=== PATIENT | female | born 1960 | race Hispanic/Latino ===

== ENCOUNTER 2024-11-05 19:32 | Emergency (ER) | payer BC ==
[~2024-11-05] VITALS: Ht 152.4 cm; Wt 89.4 kg
--- NOTE | 2024-11-05 19:45 | ERN ---
ED Note History of Present Illness Stated Complaint: C/O NUMBNESS TO BODY X 3 DAYS Chief Complaint: Numbness Time Seen by MD: 19:34 Time Seen by Midlevel: 19:36 Dictation: Ms. Shepherd is a 64 year old female with history of hypertension, CVA in 2020, and obesity who presented to the Emergency Department this evening evaluation of generalized weakness. She states that on Monday she developed a congested cough, fatigue, and general weakness. She states sympoms have persisted and now she states her whole body feels numb and she has felt dizzy. Preserved today, she experienced a transient episode of left arm/hand weakness.. She states that she has a tingling sensation in both hands/feet which she states makes it hard to get around. She denies fever, chills, shortness of breath, chest pain, palpitations, edema, abdominal pain, nausea, vomiting, hematemesis, c onstipation, diarrhea, melena, hematochezia, dysuria, headache, facial droop, dysarthria, dysphagia, vision changes, ataxi, dizziness, or focal paresthesia. Allergies: Coded Allergies: No Known Allergies (Unverified Allergy, Unknown, 11/05/24) Emergency Care [employer]: None Past Medical History Past Medical History: CVA, Hypertension Surgical History: None PSYCH History: no pertinent psych hx Social History: Negative, Lives with family History: Not Applicable RN Note Reviewed/Agreed w/PFSH: Yes Review of System Dictation REVIEW OF SYSTEMS: CONSTITUTIONAL: Patient denies fevers, chills, sweats and weight changes. Reports fatigue and general weakness x 3 days. EYES: Patient denies any visual symptoms. EARS, NOSE, AND THROAT: No difficulties with hearing. No symptoms of rhinitis or sore throat. CARDIOVASCULAR: Patient denies chest pains, palpitations, orthopnea and paroxysmal nocturnal dyspnea. RESPIRATORY: No dyspnea on exertion, no wheezing. Reports congested cough. GI: No nausea, vomiting, diarrhea, constipation, abdominal pain, hematochezia or melena. : No urinary hesitancy or dribbling. No nocturia or urinary frequency. No abnormal urethral discharge. MUSCULOSKELETAL: No myalgias or arthralgias. NEUROLOGIC: No chronic headaches, no seizures. Patient denies focal weakness/paresthesia. Reports dizziness. Reports feeling "numb all over". Reports tingling/numbness is worse in her feet and hands. PSYCHIATRIC: Patient denies problems with mood disturbance. No problems with anxiety. ENDOCRINE: No excessive urination or excessive thirst. DERMATOLOGIC: Patient denies any rashes or skin changes. Initial Vital Sign VS Vital Signs Date Time Temp Pulse Resp B/P (MAP) Pulse Ox O2 Delivery O2 Flow Rate FiO2 11/05/24 19:35 98.6 91 20 138/84 97 Room Air 11/05/24 21:48 0 21 Physical Exam Dictation Vital signs: Reviewed. Afebrile Constitutional: No acute distress. Non-toxic appearing. Head/Face: Normocephalic, atraumatic. Eyes: Periorbital areas with no swelling, redness, or edema. Lids and lashes are normal. Conjunctival injection is absent. Sclera anicteric. Pupils equal, round, reactive to light. ENT: Pinnas intact and no signs of trauma or erythema. Ear canals clear and no discharge. TMs no erythema. No nasal discharge or bleeding noted. Oropharynx with no exudate, redness, swelling, masses, exudates, or evidence of obstruction. Uvula midline. Mucous membranes moist. Neck: Trachea midline, no masses palpated, and no cervical lymphadenopathy. No swelling. Supple, full range of motion. Chest/Axilla: No tenderness, no crepitus, no paradoxical movement, no retractions. Cardiovascular: Regular rate, regular rhythm, no murmur, no gallops. Symmetric pulses. No peripheral edema. BP 138/84. Respiratory: Respirations even and unlabored. Lung sounds clear; no wheezes, ra les or rhonchi. Room air spo2 97%. Gastrointestinal: Inspection is normal. No distention is appreciated. Bowel sounds are normal. No mass or organomegaly . There is no tenderness. No rebound. No rigidity. No voluntary or involuntary guarding. No Cox's sign. Neurological: Aox4. Speech is clear; no aphasia or dysarthria. Face symmetrical. Cranial nerves intact. Motor function: UE 5/5 bilaterally; LE 4/5 bilaterally. Gait steady. NIHSS=0. Musculoskeletal/Extremities: All extremities have full range of motion, no pain or tenderness on palpation. Symmetric pulses. Integumentary: Intact. Skin is normal color, warm and dry. Cap refill less than 3 seconds. NIH Stroke Scale/Score (NIHSS) from [email or web address] on 11/05/2024 All calculations should be rechecked by clinician prior to use RESULT SUMMARY: 0 points NIH Stroke Scale INPUTS: 1A: Level of consciousness > 0 = Alert; keenly responsive 1B: Ask month and age > 0 = Both questions right 1C: 'Blink eyes' & 'squeeze hands' > 0 = Performs both tasks 2: Horizontal extraocular movements > 0 = Normal 3: Visual hutton > 0 = No visual loss 4: Facial palsy > 0 = Normal symmetry 5A: Left arm motor drift > 0 = No drift for 10 seconds 5B: Right arm motor drift > 0 = No drift for 10 seconds 6A: Left leg motor drift > 0 = No drift for 5 seconds 6B: Right leg motor drift > 0 = No drift for 5 seconds 7: Limb Ataxia > 0 = No ataxia 8: Sensation > 0 = Normal; no sensory loss 9: Language/aphasia > 0 = Normal; no aphasia 10: Dysarthria > 0 = Normal 11: Extinction/inattention > 0 = No abnormality Results (Laboratory/Radiology) Laboratory/Radiology Laboratory Tests Test 11/05/24 20:04 11/05/24 20:09 11/05/24 21:28 Influenza Type A Antigen Negative For Type A Influenza Type B Antigen Negative For Type B SARS-CoV-2, RNA, NAAT NEGATIVE SARS CoV-2 White Blood Count 4.9 K/uL (4.8-10.8) Red Blood Count 4.35 MIL/uL (4.00-5.50) Hemoglobin 13.6 g/dL (12.0-16.0) Hematocrit 40.6 % (36-48) Mean Corpuscular Volume 93.3 fL (79-99) Mean Corpuscular Hemoglobin 31.3 pg (27.0-33.0) Mean Corpuscular Hemoglobin Concent 33.5 g/dL (32.0-36.0) Red Cell Distribution Width 12.7 % (11.0-15.5) Platelet Count 201 K/uL (130-400) Mean Platelet Volume 10.5 fL (7.5-10.5) Immature Granulocyte % (Auto) 0.2 % (0-1) Neutrophils (%) (Auto) 50.3 % (40.0-77.0) Lymphocytes (%) (Auto) 37.5 % (21.0-51.0) Monocytes (%) (Auto) 8.7 % (3.0-13.0) Eosinophils (%) (Auto) 2.7 % (0.0-8.0) Basophils (%) (Auto) 0.6 % (0.0-5.0) Neutrophils # (Auto) 2.4 K/uL (1.8-7.7) Lymphocytes # (Auto) 1.8 K/uL (1.0-4.8) Monocytes # (Auto) 0.4 K/uL (0.1-1.0) Eosinophils # (Auto) 0.13 K/uL (0.00-0.70) Basophils # (Auto) 0.03 K/uL (0.00-0.20) Absolute Immature Granulocyte (auto 0.01 K/uL (0-1) Nucleated Red Blood Cells 0.0 % (0.0-0.19) Sodium Level 143 mmol/L (136-145) Potassium Level 3.3 mmol/L (3.5-5.1) L Chloride Level 108 mmol/L (101-111) Carbon Dioxide Level 26 mmol/L (21-32) Blood Urea Nitrogen 20 mg/dL (7-18) H Creatinine 1.1 mg/dL (0.5-1.0) H Glomerular Filtration Rate Calc 56 mL/min (>90) Random Glucose 121 mg/dL (70-105) H Total Calcium 8.6 mg/dL (8.5-10.1) Total Bilirubin 0.4 mg/dL (0.2-1.0) Direct Bilirubin 0.1 mg/dL (0.0-0.3) Aspartate Amino Transf (AST/SGOT) 37 U/L (10-37) Alanine Aminotransferase (ALT/SGPT) 37 U/L (12-78) Alkaline Phosphatase 91 U/L (50-136) Troponin I High Sensitivity 11 ng/L (4-50) Total Protein 7.9 g/dL (6.0-8.3) Albumin 3.2 g/dL (3.5-5.0) L Urine Color LIGHT-YELLOW (YELLOW) Urine Appearance CLOUDY (CLEAR) H Urine pH 5.0 (5.0-8.0) Urine Specific [place] 1.013 (1.001-1.031) Urine Protein NEGATIVE mg/dL (NEGATIVE) Urine Glucose (UA) NEGATIVE mg/dL (NEGATIVE) Urine Ketones NEGATIVE mg/dL (NEGATIVE) Urine Occult Blood +- (TRACE) (NEGATIVE) H Urine Nitrate NEGATIVE (NEGATIVE) Urine Bilirubin NEGATIVE mg/dL (NEGATIVE) Urine Urobilinogen 0.2 mg/dL (0.2-1.0) Urine Leukocyte Esterase 500 Shabnam/uL (NEGATIVE) H Urine RBC 11-25 /HPF (0-1) H Urine WBC 26-50 /HPF (0-1) H Urine Squamous Epithelial Cells FEW /HPF (0-2) Urine Other Crystals (Auto) 2 /HPF (None Seen) Urine Bacteria FEW /HPF (None Seen) Urine Hyaline Casts 0-1 /LPF (0-1 /LPF) Urine Other Casts 4 /LPF (None Seen) Urine Yeast RARE /HPF (None Seen) Labs Reviewed?: Yes EKG Comment: EKG Interpretation: Normal sinus rhythm Ventricular rate: 75 bpm AR Interval: 129 ms QRS duration: [address] segment elevation or depression. Clinical impression: Sinus rhythm. EKG Reviewed and interpreted by Dr. Bensno Mariano X-RAY Comment: PATIENT: MATHEW SHEPHERD MR#: [id number] : 1960 SEX: F AGE: 64 LOCATION: [facility] ORDER 39 STATUS: REG ER REPORT#: [id number] SERVICE 38 REASON: cough ORDERING PHYSICIAN: RED BRICE NP PROCEDURE: CXR1VW - CHEST 1VW Exam Type: CHEST 1VW Clinical Information: cough Comparison: None Findings: The lungs are clear of infiltrates. The heart is normal in size. The bony and soft tissue structures of the chest are unremarkable. Impression: Clear lungs. DICTATED BY: BINTA RODRIGUES MD DATE: 11/05/241999 ELECTRONICALLY SIGNED BY: BINTA RODRIGUES MD DATE: 11/05/242013 CT Scan Comment: PATIENT: MATHEW SHEPHERD MR#: [id number] : 1960 SEX: F AGE: 64 LOCATION: [facility] ORDER 47 STATUS: REG ER REPORT#: [id number] SERVICE 46 REASON: dizziness ORDERING PHYSICIAN: RED BRICE NP PROCEDURE: HEAD WO - CT HEAD/BRAIN W/O CONTRAST Exam Type: CT HEAD/BRAIN W/O CONTRAST Clinical Information: dizziness Comparison: None CT Dose Index (CTDI): 57.33 mGy Dose Length Product (DLP): 956.79 total mGy-cm Findings: The examination is unremarkable. Tai-white matter junction is preserved. No intra or extra axial lesions or fluid collections are seen. Specifically, tai and white matter are normal in signal characteristics with normal caliber of ventricles and periventricular cisterns with no evidence of intra or or extra-axial hemorrhage, lacunar infarct, or major territorial infarct, mass, or other abnormality. There are no infarcts. There are no hemorrhages. Periventricular white matter locations are preserved. The orbital contents and structures of the posterior fossa are intact. Impression: Normal CT of the head. This study was performed using dose reduction techniques to include automated exposure control and/or adjustment of the mA and/or kV according to patient size. DICTATED BY: BINTA RODRIGUES MD DATE: 11/05/242016 ELECTRONICALLY SIGNED BY: BINTA RODRIGUES MD DATE: 11/05/242019 ED Course ED Course Orders Procedure Category Date Status Time Cbc With Differential LAB 11/05/24 Complete 19:36 Basic Metabolic Panel LAB 11/05/24 Complete 19:36 Hepatic Function Panel LAB 11/05/24 Complete 19:36 Urinalysis Profile LAB 11/05/24 Complete 19:36 12 Lead Ekg Tracing- EKG 11/05/24 Complete Technical 19:36 Troponin I High LAB 11/05/24 Complete Sensitivity 19:36 Chest 1vw RAD 11/05/24 Resulted 19:39 Covid Rna Naat LAB 11/05/24 Complete 19:39 Influenza Type A & B, LAB 11/05/24 Complete Rapid 19:39 12 Lead Ekg Tracing- EKG 11/05/24 Logged Technical 19:44 Ct Head/Brain W/O CT 11/05/24 Resulted Contrast 19:47 0.9% Nacl 500ml PHA 11/05/24 Complete Iv.Soln (Ns 500ml 21:30 Culture Urine ZAY 11/05/24 In Process 21:39 Current Medications Medications (Trade) Dose Ordered Sig/Lisette Route PRN Reason Start Time Stop Time Status Last Admin Dose Admin Sodium Chloride 500 ml @ 0 mls/hr ONCE ONCE IV 11/05/24 21:30 11/05/24 21:31 DC 11/05/24 21:57 Vital Signs Date Time Temp Pulse Resp B/P (MAP) Pulse Ox O2 Delivery O2 Flow Rate FiO2 11/05/24 21:48 98.4 66 18 108/66 98 Room Air* 0 21 11/05/24 19:35 98.6 91 20 138/84 97 Room Air Uneventful ED course. Vital signs remained stable; afebrile and normotensive with room air SpO2 97-99%. Twelve lead EKG reflects a sinus rhythm without ST elevation or depression. Laboratory findings as noted below. COVID and influenza A/B negative. NO elevation of WBC. H.H stable. K 3.3, BUN/cr 1.1, glucoser 121, and albumin 3.2. Troponin negative. Whlie in the ED she received doses Rocephin, KCL, and NS 500 ml IV as bolus. Medical Decision Making MDM MDM: Differential diagnosis: influenza A/B, COVID, UTI, ACS Rationale: Tests considered and ordered secondary to shared decision making include: EKG, CXR, lab, CT Previous outside records reviewed: Old ER visits. Risk of complication and/or morbidity or mortality of patient management: None Medications-Per medication reconciliation Need for hospitalization: Patient does not meet criteria for hospitalization. Need for emergency major/minor surgery: No There are no social concerns with this patient. Prescription drug management Prescriptions will include symptomatic care Patient's prior external medical records from other ER visits were reviewed by me as indicated. Prior testing and results from previous visits were reviewed. Prior tests were taken into account with medical decision making and resource utilization, independent historian/historians were used to obtain complete medical history. I independently interpreted the test that were performed, results were reviewed by me and considered findings on radiology if ordered. Medical management and examination interpretation discussions were had by me with other qualified healthcare professionals as indicated for the patient's care. DX & DISP Disposition: Discharge Departure Impression: Primary Impression: UTI (urinary tract infection) Additional Impressions: Hypokalemia, Mild dehydration Condition: Stable Scripts Phenazopyridine HCl (Pyridium) 100 Mg Tab 100 MG PO q8 hours PRN, #10 TAB 0 Refills Prov: RED BRICE NP 11/05/24 Cephalexin (Cephalexin) 500 Mg Tablet 1 TAB PO BID for 10 Days, #20 TAB 0 Refills Prov: RED BRICE NP 11/05/24 Additional Instructions: Rest. Drink plenty of fluids. Avoid baths. Continue antibiotics with cephalexin twice daily for 10 days. May take Pyridium every 8 hours as needed for dysuria. Follow up this week with your primary care provider. Return to the Emergency Department for any worsening of symptoms or concerns. Referrals: SELF,REFERRAL (PCP) Time of Disposition: 22:16 RED BRICE NP Nov 05, 2024 19:45
--- NOTE | 2024-11-05 19:55 | EKG ---
[facility] Test Date: 2024-11-05 Test Time: 19:52:28 Pat Name: MATHEW SHEPHERD Department: ED Room: Gender: F Clinical Specialty Rep: [id number] : 1960 Requested By: RED BRICE Order Number: [id number] Reading MD: Kvng Juarez Measurements Intervals [place] Rate: 75 P: 19 IA: 129 QRS: 18 QRSD: 97 T: 114 QT: 378 QTc: 423 Interpretive Statements Sinus rhythm Nonspecific T abnormalities, lateral leads No previous ECG available for comparison Electronically Signed On 11-06-2024 13:28:58 CDT by Kvng Juarez Please click the below link to view image of tracing.
--- NOTE | 2024-11-05 20:14 | HMCIMG ---
Exam Type: CHEST 1VW Clinical Information: cough Comparison: None Findings: The lungs are clear of infiltrates. The heart is normal in size. The bony and soft tissue structures of the chest are unremarkable. Impression: Clear lungs.
[2024-11-05 20:17] LABS: BASOPHILS # (AUTO) 0.03 K/uL (0.00-0.20); BASOPHILS % (AUTO) 0.6 % (0.0-5.0); EOSINOPHILS # (AUTO) 0.13 K/uL (0.00-0.70); EOSINOPHILS % (AUTO) 2.7 % (0.0-8.0); HEMATOCRIT 40.6 % (36-48); IMMATURE GRANULOCYTE ABSOLUTE 0.01 K/uL (0-1); LYMPHOCYTES # (AUTO) 1.8 K/uL (1.0-4.8); LYMPHOCYTES % (AUTO) 37.5 % (21.0-51.0); MEAN CORPUSCULAR HEMOGLOBIN 31.3 pg (27.0-33.0); MEAN CORPUSCULAR HGB CONC 33.5 g/dL (32.0-36.0); MEAN CORPUSCULAR VOLUME 93.3 fL (79-99); MONOCYTES # (AUTO) 0.4 K/uL (0.1-1.0); MONOCYTES % (AUTO) 8.7 % (3.0-13.0); NEUTROPHILS # (AUTO) 2.4 K/uL (1.8-7.7); NEUTROPHILS % (AUTO) 50.3 % (40.0-77.0); PLATELET COUNT (AUTO) 201 K/uL (130-400); RED BLOOD CELL COUNT(AUTO) 4.35 MIL/uL (4.00-5.50); RED CELL DISTRIBUTION WIDTH 12.7 % (11.0-15.5); WHITE BLOOD COUNT (AUTO) 4.9 K/uL (4.8-10.8)
--- NOTE | 2024-11-05 20:20 | HMCIMG ---
Exam Type: CT HEAD/BRAIN W/O CONTRAST Clinical Information: dizziness Comparison: None CT Dose Index (CTDI): 57.33 mGy Dose Length Product (DLP): 956.79 total mGy-cm Findings: The examination is unremarkable. Tai-white matter junction is preserved. No intra or extra axial lesions or fluid collections are seen. Specifically, tai and white matter are normal in signal characteristics with normal caliber of ventricles and periventricular cisterns with no evidence of intra or or extra-axial hemorrhage, lacunar infarct, or major territorial infarct, mass, or other abnormality. There are no infarcts. There are no hemorrhages. Periventricular white matter locations are preserved. The orbital contents and structures of the posterior fossa are intact. Impression: Normal CT of the head. This study was performed using dose reduction techniques to include automated exposure control and/or adjustment of the mA and/or kV according to patient size.
[2024-11-05 20:28] LABS: SARS-CoV-2, RNA, NAAT NEGATIVE SARS CoV-2 (NEGATIVE)
[2024-11-05 20:28] LABS: CREATININE 1.1 mg/dL (0.5-1.0); POTASSIUM 3.3 mmol/L (3.5-5.1)
[2024-11-05 20:32] LABS: ALBUMIN 3.2 g/dL (3.5-5.0); BILIRUBIN,DIRECT 0.1 mg/dL (0.0-0.3); BILIRUBIN,TOTAL 0.4 mg/dL (0.2-1.0); TOTAL PROTEIN, SERUM 7.9 g/dL (6.0-8.3)
[2024-11-05 20:33] LABS: INFLUENZA TYPE A Negative For Type A (NEGATIVE); INFLUENZA TYPE B Negative For Type B (NEGATIVE)
[2024-11-05 21:37] LABS: APPEARANCE,URINE CLOUDY (CLEAR); BILIRUBIN,URINE NEGATIVE (NEGATIVE); COLOR,URINE LIGHT-YELLOW (YELLOW); GLUCOSE, URINE (UA) NEGATIVE (NEGATIVE); KETONES,URINE NEGATIVE (NEGATIVE); LEUKOCYTE ESTERASE ,URINE 500 Leu/uL (NEGATIVE); NITRATE,URINE NEGATIVE (NEGATIVE); PROTEIN,URINE NEGATIVE (NEGATIVE); UROBILINOGEN,URINE 0.2 mg/dL (0.2-1.0)
[2024-11-05 21:38] LABS: ADD UA MICROSCOPIC YES
[2024-11-05 21:51] LABS: BACTERIA,URINE FEW /HPF (None Seen); HYALINE CASTS, URINE 0-1 /LPF (0-1 /LPF); MUCUS,URINE RARE LPF (None Seen); OTHER CASTS, URINE 4 /LPF (None Seen); SQUAMOUS EPITHELIAL CELL,UR FEW /HPF (0-2); UNCLASSIFIED CRYSTAL 2 /HPF (None Seen); WBC,URINE 26-50 /HPF (0-1); YEAST,URINE BUDDING RARE /HPF (None Seen)
[2024-11-05] MEDS: 0.9% NACL 500ML IV.SOLN 500 ML IV ONE (21:57)
[2024-11-05] MEDS ORDERED: CEPH500T PO (22:12)
[2024-11-05] MEDS ORDERED: PHEN-846 PO (22:12)
[2024-11-05] MEDS: cefTRIAXone 1G VIAL IVPB ONE (22:43)
[2024-11-05] MEDS: PoTASSium chloRIDE 20MEQ ER 20 MEQ ERTAB PO ONE (22:44)
[2024-11-05 22:50] VITALS: BP 128/52; PULSE 72; RESP 20; TEMP 98.5; O2SAT 97
== END 2024-11-05 22:57 | disposition home or self-care (01) ==
LOC: EDH 19:32
DX: N39.0 Urinary tract infection, site not specified (principal); E87.6 Hypokalemia; E86.0 Dehydration; I10 Essential (primary) hypertension; Z86.73 Personal history of transient ischemic attack (TIA), and cerebral infarction without residual deficits; Z20.822 Contact with and (suspected) exposure to COVID-19
CPT/HCPCS: 99284; 96374; 70450; 71045; 87635; 96361; 80076; 84484; 80048; 85025; 87086 ×2; 87186; 87804 ×2; 81001; 36415; 93005; J7040; J0696